=== PATIENT | male | born 2000 | race African-American/Black ===

== ENCOUNTER 2021-10-15 04:15 | Emergency (ER) | payer MEDICAID ==
[~2021-10-15] VITALS: Ht 180.3 cm; Wt 82.0 kg
[2021-10-15] MEDS ORDERED: HYDROCODONE/ACETAMINOPHEN 5/325MG TABLET PO STA (04:55)
[2021-10-15 05:19] VITALS: BP 138/76
[2021-10-15 06:12] LABS: CHLORIDE 106 mEq/L (98-107)
[2021-10-15 06:16] LABS: BASOPHILS % 0.4 % (0.0-2.0); EOSINOPHILS % 3.9 % (0.0-5.0); HEMATOCRIT. 38.4 % (42.0-52.0); HEMOGLOBIN. 12.8 g/dL (14.0-18.0); LYMPHOCYTES % 36.1 % (20.0-50.0); MEAN CORPUSCULAR HEMOGLOBIN 27.8 pg (28.0-32.0); MEAN CORPUSCULAR VOLUME 83.6 fL (80.0-94.0); MEAN PLATELET VOLUME 8.6 fl (7.4-10.4); MONOCYTES % 8.7 % (2.0-8.0); NEUTROPHILS % 50.9 % (40.0-76.0); PLATELET 285 x1000/uL (130-400); RED CELL DISTRIBUTION WIDTH 15.5 % (11.6-14.6)
[2021-10-15] MEDS ORDERED: NAPR-681 PO (06:52)
[2021-10-15 06:56] LABS: CLARITY URINE CLEAR (CLEAR); COLOR URINE YELLOW (YELLOW); KETONES URINE NEGATIVE (NEGATIVE); LEUKOCYTE ESTERASE URINE NEGATIVE (NEGATIVE); NITRITE URINE NEGATIVE (NEGATIVE); OCCULT BLOOD URINE NEGATIVE (NEGATIVE); PH URINE 6.5 (4.5-8.0); PROTEIN URINE NEGATIVE (NEGATIVE); SPECIFIC GRAVITY URINE 1.005 (1.005-1.030); UROBILINOGEN URINE 0.2 E.U./dL (0.2-1.0)
[2021-10-15] MEDS ORDERED: CYCL5TAB PO (07:00)
== END 2021-10-15 07:10 | disposition home or self-care (01) ==
LOC: ER 04:15
DX: M54.50 Low back pain, unspecified (principal); Z87.828 Personal history of other (healed) physical injury and trauma
CPT/HCPCS: 36415; 71045; 76770; 80053; 81003; 85025; 99285

== ENCOUNTER 2021-11-10 06:19 | Emergency (ER) | payer MEDICAID ==
[~2021-11-10] VITALS: Ht 180.3 cm; Wt 82.0 kg
[~2021-11-10 06:19] MED LIST: CYCL5TAB PO; NAPR-681 PO
[2021-11-10] MEDS ORDERED: AM250 PO (08:17)
[2021-11-10 08:51] VITALS: BP 139/70
== END 2021-11-10 08:52 | disposition home or self-care (01) ==
LOC: ER 06:19
DX: H66.92 Otitis media, unspecified, left ear (principal); Z79.899 Other long term (current) drug therapy
CPT/HCPCS: 99283

== ENCOUNTER 2022-11-23 17:40 | Emergency (ER) | payer MEDICAID ==
[~2022-11-23] VITALS: Ht 180.3 cm; Wt 82.0 kg
[~2022-11-23 17:40] MED LIST changes: +AM250 PO
[2022-11-23 17:41] VITALS: BP 114/66
[2022-11-23 18:43] LABS: BASOPHILS % 0.2 % (0.0-2.0); EOSINOPHILS % 0.5 % (0.0-5.0); HEMATOCRIT. 42.6 % (42.0-52.0); HEMOGLOBIN. 14.5 g/dL (14.0-18.0); LYMPHOCYTES % 15.2 % (20.0-50.0); MEAN CORPUSCULAR HEMOGLOBIN 29.1 pg (28.0-32.0); MEAN CORPUSCULAR VOLUME 85.8 fL (80.0-94.0); MEAN PLATELET VOLUME 8.1 fl (7.4-10.4); MONOCYTES % 7.6 % (2.0-8.0); NEUTROPHILS % 76.5 % (40.0-76.0); PLATELET 294 x1000/uL (130-400); RED BLOOD CELL COUNT 4.97 mill/uL (4.7-6.1); RED CELL DISTRIBUTION WIDTH 14.1 % (11.6-14.6)
[2022-11-23] MEDS: IBUPROFEN 600MG TABLET PO STA (18:45)
[2022-11-23] MEDS: ONDANSETRON 4MG ODT PO STA (18:45)
[2022-11-23 19:00] LABS: CLARITY URINE CLEAR (CLEAR); COLOR URINE YELLOW (YELLOW); KETONES URINE 1+ (NEGATIVE); LEUKOCYTE ESTERASE URINE TRACE (NEGATIVE); NITRITE URINE NEGATIVE (NEGATIVE); OCCULT BLOOD URINE NEGATIVE (NEGATIVE); PROTEIN URINE NEGATIVE (NEGATIVE); SPECIFIC GRAVITY URINE 1.009 (1.005-1.030)
[2022-11-23 19:04] LABS: CHLORIDE 103 mEq/L (98-107)
[2022-11-23] MEDS: FAMOTIDINE 20MG TABLET PO ONE (20:03)
[2022-11-23] MEDS: MAGNESIUM/ALUMINUM HYDROXIDE/SIMETHICONE 30ML UDC PO ONE (20:03)
[2022-11-23] MEDS ORDERED: TAMS-11 MT (20:46)
[2022-11-23] MEDS ORDERED: CIPR500T5 MT (20:46)
== END 2022-11-23 21:42 | disposition home or self-care (01) ==
LOC: ER 17:46
DX: N20.0 Calculus of kidney (principal); Z98.890 Other specified postprocedural states
CPT/HCPCS: 36415; 74176; 80053; 81003; 83690; 85025; 99284; Q0162

== ENCOUNTER 2023-01-22 15:26 | Emergency (ER) | payer MEDICAID ==
[~2023-01-22] VITALS: Ht 180.3 cm; Wt 80.0 kg
[~2023-01-22 15:26] MED LIST changes: +CIPR500T5 MT; +TAMS-11 MT
[2023-01-22] MEDS ORDERED: ACETAMINOPHEN 325MG TABLET PO STA (15:31)
[2023-01-22 15:33] VITALS: BP 116/65
[2023-01-22 17:06] LABS: BASOPHILS % 0.1 % (0.0-2.0); EOSINOPHILS % 0.8 % (0.0-5.0); HEMATOCRIT. 39.2 % (42.0-52.0); HEMOGLOBIN. 13.2 g/dL (14.0-18.0); MEAN CORPUSCULAR HEMOGLOBIN 28.9 pg (28.0-32.0); MEAN CORPUSCULAR VOLUME 85.5 fL (80.0-94.0); MEAN PLATELET VOLUME 8.9 fl (7.4-10.4); MONOCYTES % 8.3 % (2.0-8.0); NEUTROPHILS % 75.8 % (40.0-76.0); PLATELET 256 x1000/uL (130-400); RED BLOOD CELL COUNT 4.58 mill/uL (4.7-6.1); RED CELL DISTRIBUTION WIDTH 14.3 % (11.6-14.6)
[2023-01-22 17:15] LABS: CHLORIDE 100 mEq/L (98-107)
[2023-01-22 19:46] LABS: CLARITY URINE CLEAR (CLEAR); COLOR URINE ORANGE (YELLOW); KETONES URINE 4+ (NEGATIVE); LEUKOCYTE ESTERASE URINE TRACE (NEGATIVE); NITRITE URINE NEGATIVE (NEGATIVE); OCCULT BLOOD URINE TRACE (NEGATIVE); PROTEIN URINE 1+ (NEGATIVE); SPECIFIC GRAVITY URINE 1.027 (1.005-1.030)
[2023-01-22] MEDS ORDERED: IBUP-2029 MT (20:13)
== END 2023-01-22 22:09 | disposition home or self-care (01) ==
LOC: ER 15:26
DX: R10.9 Unspecified abdominal pain (principal)
CPT/HCPCS: 36415; 74176; 80053; 81003; 85025; 99284

== ENCOUNTER 2023-02-20 11:17 | Emergency (ER) | payer MEDICAID ==
[~2023-02-20] VITALS: Ht 180.3 cm; Wt 82.0 kg
[~2023-02-20 11:17] MED LIST changes: +IBUP-2029 MT
[2023-02-20] MEDS ORDERED: PENI500T MT (12:40)
[2023-02-20] MEDS ORDERED: IBUP-2029 MT (12:40)
[2023-02-20] MEDS ORDERED: IBUPROFEN 600MG TABLET PO ONE (12:45)
[2023-02-20] MEDS ORDERED: PENICILLIN V POTASSIUM 250MG TABLET PO ONE (12:45)
[2023-02-20 13:08] VITALS: BP 143/66
== END 2023-02-20 13:09 | disposition home or self-care (01) ==
LOC: ER 11:19
DX: K04.7 Periapical abscess without sinus (principal); Z87.19 Personal history of other diseases of the digestive system
CPT/HCPCS: 99283

== ENCOUNTER 2023-02-25 00:30 | Emergency (ER) | payer MEDICAID ==
[~2023-02-25] VITALS: Ht 182.9 cm; Wt 87.0 kg
[~2023-02-25 00:30] MED LIST changes: +PENI500T MT
[2023-02-25 00:40] VITALS: BP 110/60
[2023-02-25] MEDS ORDERED: IBUPROFEN 600MG TABLET PO ONE (01:15)
[2023-02-25 01:44] LABS: CLARITY URINE CLEAR (CLEAR); COLOR URINE YELLOW (YELLOW); KETONES URINE TRACE (NEGATIVE); LEUKOCYTE ESTERASE URINE TRACE (NEGATIVE); NITRITE URINE NEGATIVE (NEGATIVE); OCCULT BLOOD URINE NEGATIVE (NEGATIVE); PH URINE 7.5 (4.5-8.0); PROTEIN URINE NEGATIVE (NEGATIVE); SPECIFIC GRAVITY URINE 1.022 (1.005-1.030)
[2023-02-25] MEDS ORDERED: SULF1TAB48 MT (02:12)
[2023-02-25] MEDS ORDERED: IBUP-2029 MT (02:12)
== END 2023-02-25 03:03 | disposition home or self-care (01) ==
LOC: ER 00:38
DX: N39.0 Urinary tract infection, site not specified (principal)
CPT/HCPCS: 81003; 99283

== ENCOUNTER 2023-03-31 07:31 | Emergency (ER) | payer MEDICAID ==
[~2023-03-31] VITALS: Ht 180.3 cm; Wt 82.0 kg
[~2023-03-31 07:31] MED LIST changes: +SULF1TAB48 MT
[2023-03-31] MEDS ORDERED: MAGNESIUM/ALUMINUM HYDROXIDE/SIMETHICONE 30ML UDC PO STA (07:37)
[2023-03-31] MEDS ORDERED: FAMOTIDINE 20MG/2ML VIAL IV STA (07:37)
[2023-03-31] MEDS ORDERED: ONDANSETRON HCL 4MG/2ML INJ IV STA (07:37)
[2023-03-31] MEDS ORDERED: VISCOUS LIDOCAINE 2% 15 ML UDC PO STA (07:37)
[2023-03-31] MEDS ORDERED: DICYCLOMINE 10 MG/5 ML ORAL SYR PO STA (07:37)
[2023-03-31 07:38] VITALS: BP 108/74
[2023-03-31 07:53] LABS: BASOPHILS % 0.5 % (0.0-2.0); EOSINOPHILS % 3.1 % (0.0-5.0); HEMATOCRIT. 37.1 % (42.0-52.0); HEMOGLOBIN. 12.3 g/dL (14.0-18.0); MEAN CORPUSCULAR HEMOGLOBIN 28.1 pg (28.0-32.0); MEAN PLATELET VOLUME 7.3 fl (7.4-10.4); NEUTROPHILS % 58.4 % (40.0-76.0); PLATELET 346 x1000/uL (130-400); RED BLOOD CELL COUNT 4.36 mill/uL (4.7-6.1); RED CELL DISTRIBUTION WIDTH 15.3 % (11.6-14.6)
[2023-03-31 08:01] LABS: CHLORIDE 108 mEq/L (98-107)
[2023-03-31 08:05] LABS: INR 1.1; PROTHROMBIN TIME 11.5 sec (9.6-11.0)
[2023-03-31] MEDS ORDERED: ONDANSETRON HCL 4MG/2ML INJ IV NR (08:15)
[2023-03-31] MEDS ORDERED: VISCOUS LIDOCAINE 2% 15 ML UDC PO NR (08:15)
[2023-03-31] MEDS ORDERED: FAMOTIDINE 20MG/2ML VIAL IV NR (08:15)
[2023-03-31] MEDS ORDERED: MAGNESIUM/ALUMINUM HYDROXIDE/SIMETHICONE 30ML UDC PO NR (08:15)
== END 2023-03-31 09:46 | disposition home or self-care (01) ==
LOC: ER 07:31
DX: R10.9 Unspecified abdominal pain (principal); K25.9 Gastric ulcer, unspecified as acute or chronic, without hemorrhage or perforation; Z79.899 Other long term (current) drug therapy
CPT/HCPCS: 36415; 80053; 83690; 85025; 85610; 96374; 96375; 99284; J2405; J3490; Z7610

== ENCOUNTER 2023-05-22 21:55 | Inpatient (IN) | payer MEDICAID ==
[~2023-05-22] VITALS: Ht 180.3 cm; Wt 87.1 kg
[2023-05-22 22:50] LABS: BASOPHILS % 0.5 % (0.0-2.0); EOSINOPHILS % 1.6 % (0.0-5.0); LYMPHOCYTES % 23.3 % (20.0-50.0); MEAN CORPUSCULAR HEMOGLOBIN 28.3 pg (28.0-32.0); MEAN CORPUSCULAR VOLUME 84.6 fL (80.0-94.0); MEAN PLATELET VOLUME 8.7 fl (7.4-10.4); MONOCYTES % 6.4 % (2.0-8.0); NEUTROPHILS % 68.2 % (40.0-76.0); PLATELET 223 x1000/uL (130-400); RED BLOOD CELL COUNT 4.26 mill/uL (4.7-6.1)
[2023-05-22 22:54] LABS: CHLORIDE 104 mEq/L (98-107)
[2023-05-22] MEDS ORDERED: KETOROLAC 30MG/ML VIAL IV STA (23:07)
[2023-05-22] MEDS ORDERED: SODIUM CHLORIDE 0.9% 1,000 ML IV ONE (23:15)
[2023-05-22 23:49] LABS: CLARITY URINE CLEAR (CLEAR); COLOR URINE YELLOW (YELLOW); KETONES URINE NEGATIVE (NEGATIVE); LEUKOCYTE ESTERASE URINE NEGATIVE (NEGATIVE); NITRITE URINE NEGATIVE (NEGATIVE); OCCULT BLOOD URINE NEGATIVE (NEGATIVE); PH URINE 6.5 (4.5-8.0); PROTEIN URINE NEGATIVE (NEGATIVE); SPECIFIC GRAVITY URINE 1.019 (1.005-1.030); UROBILINOGEN URINE 0.2 E.U./dL (0.2-1.0)
[2023-05-23] MEDS ORDERED: IOHEXOL-350 100 ML BOTTLE ONE (01:07)
[2023-05-23] MEDS ORDERED: PIPERACILLIN/TAZ 3.375G PREMIX 50 ML IV ONE ×2 (02:00→16:00)
[2023-05-23] MEDS ORDERED: SODIUM CHLORIDE 0.9% 1000ML BAG (SEPSIS BOLUS) IV ONE (02:00)
[2023-05-23] MEDS ORDERED: VANCOMYCIN 1G PREMIX 200 ML IV ONE (02:00)
[2023-05-23 02:42] LABS: INR 1.1; PARTIAL THROMBOPLASTIN TIME 30.9 sec (23.4-31.0); PROTHROMBIN TIME 11.5 sec (9.6-11.0)
[2023-05-23] MEDS ORDERED: ONDANSETRON HCL 4MG/2ML INJ IV PRN (02:45)
[2023-05-23] MEDS: SODIUM CHLORIDE 0.9% 1,000 ML IV SCH ×2 (02:45→22:45)
[2023-05-23] MEDS ORDERED: ACETAMINOPHEN 325MG TABLET PO PRN ×2 (02:45)
[2023-05-23] MEDS ORDERED: DIPHENHYDRAMINE 50MG/ML VIAL IV PRN (02:45)
[2023-05-23] MEDS ORDERED: PANTOPRAZOLE SODIUM 40 MG/VIAL IV SCH ×2 (03:15→09:00)
[2023-05-23 03:50] LABS: BASOPHILS % 0.3 % (0.0-2.0); EOSINOPHILS % 2.5 % (0.0-5.0); HEMATOCRIT. 32.9 % (42.0-52.0); HEMOGLOBIN. 11.1 g/dL (14.0-18.0); LYMPHOCYTES % 27.2 % (20.0-50.0); MEAN CORPUSCULAR HEMOGLOBIN 28.5 pg (28.0-32.0); MEAN CORPUSCULAR VOLUME 84.8 fL (80.0-94.0); MEAN PLATELET VOLUME 8.7 fl (7.4-10.4); MONOCYTES % 6.7 % (2.0-8.0); NEUTROPHILS % 63.3 % (40.0-76.0); PLATELET 206 x1000/uL (130-400); RED BLOOD CELL COUNT 3.88 mill/uL (4.7-6.1); RED CELL DISTRIBUTION WIDTH 16.3 % (11.6-14.6)
[2023-05-23 03:56] LABS: CHLORIDE 107 mEq/L (98-107)
[2023-05-23] MEDS: PANTOPRAZOLE SODIUM 40 MG/VIAL IV SCH ×2 (11:21→20:44)
[2023-05-23 14:45] VITALS: BP 124/63; PULSE 68; RESP 20; TEMP 97.2
[2023-05-23 16:00] VITALS: BP 120/60; PULSE 64; RESP 16; TEMP 99.3
[2023-05-23] MEDS: PIPERACILLIN/TAZOBACTAM 3.375G in DEXT 5% WATER 50ML IV SCH ×2 (16:46→22:42)
[2023-05-23] MEDS: HYDROMORPHONE HCL/PF 2MG/ML CPJ IV PRN (18:35)
[2023-05-23 20:00] VITALS: BP 117/68; PULSE 77; RESP 20; TEMP 97.5
[2023-05-24] VITALS: BP 109/59; PULSE 66; RESP 20; TEMP 98.2
[2023-05-24 04:00] VITALS: BP 102/57; PULSE 68; RESP 20; TEMP 98.2
[2023-05-24] MEDS: HYDROMORPHONE HCL/PF 2MG/ML CPJ IV PRN (04:34)
[2023-05-24] MEDS: PIPERACILLIN/TAZOBACTAM 3.375G in DEXT 5% WATER 50ML IV SCH ×3 (06:07→22:22)
[2023-05-24 06:30] LABS: INR 1.2; PROTHROMBIN TIME 12.8 sec (9.6-11.0)
[2023-05-24 06:32] LABS: BASOPHILS % 0.4 % (0.0-2.0); EOSINOPHILS % 2.3 % (0.0-5.0); HEMOGLOBIN. 12.5 g/dL (14.0-18.0); LYMPHOCYTES % 24.4 % (20.0-50.0); MEAN CORPUSCULAR HEMOGLOBIN 28.5 pg (28.0-32.0); MEAN CORPUSCULAR VOLUME 84.6 fL (80.0-94.0); MEAN PLATELET VOLUME 9.2 fl (7.4-10.4); MONOCYTES % 8.4 % (2.0-8.0); NEUTROPHILS % 64.5 % (40.0-76.0); PLATELET 223 x1000/uL (130-400); RED BLOOD CELL COUNT 4.37 mill/uL (4.7-6.1); RED CELL DISTRIBUTION WIDTH 16.3 % (11.6-14.6)
[2023-05-24 07:28] LABS: CHLORIDE 106 mEq/L (98-107)
[2023-05-24] MEDS: PANTOPRAZOLE SODIUM 40 MG/VIAL IV SCH ×2 (08:34→22:22)
[2023-05-24] MEDS: SODIUM CHLORIDE 0.9% 1,000 ML IV SCH ×3 (08:45→22:23)
[2023-05-24] MEDS ORDERED: DIATR MEGLU/DIATRIZOATE SOLN 30ML PO NR (11:45)
[2023-05-24] MEDS ORDERED: DIATR MEGLU/DIATRIZOATE SOLN 120ML ONE (15:38)
[2023-05-24] MEDS: KETOROLAC 30MG/ML VIAL IV PRN (18:21)
[2023-05-24 20:00] VITALS: BP 101/56; PULSE 63; RESP 20; TEMP 97.5
[2023-05-24] MEDS ORDERED: NALOXONE HCL 0.4MG/ML VIAL IV PRN (20:00)
[2023-05-25] VITALS (21 sets, daily range): BP systolic 104–138; BP diastolic 51–77; PULSE 51–68; RESP 16–20; TEMP 97.2–100.1
[2023-05-25] MEDS: HYDROMORPHONE HCL/PF 2MG/ML CPJ IV PRN ×2 (00:57→21:51)
[2023-05-25] MEDS: PIPERACILLIN/TAZOBACTAM 3.375G in DEXT 5% WATER 50ML IV SCH ×3 (05:54→21:51)
[2023-05-25] MEDS: SODIUM CHLORIDE 0.9% 1,000 ML IV SCH (05:54)
[2023-05-25 06:33] LABS: BASOPHILS % 0.4 % (0.0-2.0); EOSINOPHILS % 4.2 % (0.0-5.0); HEMATOCRIT. 33.7 % (42.0-52.0); HEMOGLOBIN. 11.3 g/dL (14.0-18.0); LYMPHOCYTES % 36.9 % (20.0-50.0); MEAN CORPUSCULAR HEMOGLOBIN 28.4 pg (28.0-32.0); MEAN CORPUSCULAR VOLUME 84.4 fL (80.0-94.0); MEAN PLATELET VOLUME 9.2 fl (7.4-10.4); MONOCYTES % 10.1 % (2.0-8.0); NEUTROPHILS % 48.4 % (40.0-76.0); PLATELET 225 x1000/uL (130-400); RED BLOOD CELL COUNT 3.99 mill/uL (4.7-6.1)
[2023-05-25 08:19] LABS: CHLORIDE 109 mEq/L (98-107)
[2023-05-25] MEDS: PANTOPRAZOLE SODIUM 40 MG/VIAL IV SCH (08:44)
[2023-05-25] MEDS: KETOROLAC 30MG/ML VIAL IV PRN ×3 (08:47→18:19)
[2023-05-25] MEDS ORDERED: LIDOCAINE HCL 1% 10 MG/ML 10ML VIAL ONE (09:22)
[2023-05-25] MEDS ORDERED: SODIUM BICARBONATE 4% (2.4MEQ) 5ML VIAL IV ONE (09:22)
[2023-05-25 12:39] LABS: INR 1.1; PROTHROMBIN TIME 12.1 sec (9.6-11.0)
[2023-05-25] MEDS ORDERED: FENTANYL CITRATE/PF 50MCG/ML 2ML VIAL ONE (13:00)
[2023-05-25] MEDS ORDERED: FENTANYL CITRATE/PF 50MCG/ML 2ML VIAL IV ONE (14:15)
[2023-05-26] VITALS: BP 111/54; PULSE 57; RESP 20; TEMP 97.7
[2023-05-26] MEDS: SODIUM CHLORIDE 0.9% 1,000 ML IV SCH ×3 (00:16→18:38)
[2023-05-26] MEDS: PANTOPRAZOLE 40MG DR TABLET PO SCH ×3 (00:20→20:48)
[2023-05-26] MEDS: HYDROMORPHONE HCL/PF 2MG/ML CPJ IV PRN ×3 (01:52→20:49)
[2023-05-26 04:00] VITALS: BP 109/59; PULSE 53; RESP 20; TEMP 97.5
[2023-05-26] MEDS: PIPERACILLIN/TAZOBACTAM 3.375G in DEXT 5% WATER 50ML IV SCH ×3 (05:36→20:49)
[2023-05-26 07:15] LABS: BASOPHILS % 0.5 % (0.0-2.0); EOSINOPHILS % 5.1 % (0.0-5.0); HEMATOCRIT. 33.5 % (42.0-52.0); HEMOGLOBIN. 11.3 g/dL (14.0-18.0); MEAN CORPUSCULAR HEMOGLOBIN 28.7 pg (28.0-32.0); MEAN CORPUSCULAR VOLUME 85.1 fL (80.0-94.0); MEAN PLATELET VOLUME 8.9 fl (7.4-10.4); MONOCYTES % 9.5 % (2.0-8.0); NEUTROPHILS % 49.9 % (40.0-76.0); PLATELET 231 x1000/uL (130-400); RED BLOOD CELL COUNT 3.94 mill/uL (4.7-6.1)
[2023-05-26 07:32] LABS: CHLORIDE 106 mEq/L (98-107)
[2023-05-26 20:00] VITALS: BP 109/52; PULSE 52; RESP 18; TEMP 99
[2023-05-27] VITALS (7 sets, daily range): BP systolic 104–109; BP diastolic 52–68; PULSE 50–71; RESP 16–19; TEMP 96.1–99.1; O2SAT 99
[2023-05-27] MEDS: HYDROCODONE/ACETAMINOPHEN 7.5/325MG TABLET PO PRN ×2 (03:07→19:13)
[2023-05-27] MEDS: PIPERACILLIN/TAZOBACTAM 3.375G in DEXT 5% WATER 50ML IV SCH ×2 (05:15→13:32)
[2023-05-27] MEDS: SODIUM CHLORIDE 0.9% 1,000 ML IV SCH ×2 (06:44→16:21)
[2023-05-27] MEDS: PANTOPRAZOLE 40MG DR TABLET PO SCH (08:47)
[2023-05-27] MEDS: HYDROMORPHONE HCL/PF 2MG/ML CPJ IV PRN (13:17)
== END 2023-05-27 20:35 | disposition home health service (06) | DRG 254 ==
LOC: ER 22:35 → 6EST 05-23 02:36 → EDBEDREQSVC 05-23 03:49 → 6EST 05-23 14:36
PROVIDERS: ADMIT Internal Medicine; ATTEND Internal Medicine
PROC: 0J9C3ZZ Drainage of Pelvic Region Subcutaneous Tissue and Fascia, Percutaneous Approach (ICD-10-PCS; principal; 2023-05-25)
DX: K63.2 Fistula of intestine (principal); K65.1 Peritoneal abscess; K27.9 Peptic ulcer, site unspecified, unspecified as acute or chronic, without hemorrhage or perforation; K76.0 Fatty (change of) liver, not elsewhere classified; F10.10 Alcohol abuse, uncomplicated; Y90.9 Presence of alcohol in blood, level not specified; N20.0 Calculus of kidney; Z87.11 Personal history of peptic ulcer disease; S31.139A Puncture wound of abdominal wall without foreign body, unspecified quadrant without penetration into peritoneal cavity, initial encounter; Z87.442 Personal history of urinary calculi; Z79.899 Other long term (current) drug therapy; W34.09XA Accidental discharge from other specified firearms, initial encounter; Y93.89 Activity, other specified; Y92.89 Other specified places as the place of occurrence of the external cause; Y99.8 Other external cause status
CPT/HCPCS: 36415; 71045; 71275; 74176; 77012; 80048; 80053; 81003; 83605; 83880; 84145; 84484; 85025; 85379; 87077; 87186; 93005; 99285; C1729; C1769; C9113; J1170; J1885; J2543; J3010; J3370; J3490; J7030; J7060; L8514; Q9963; Q9967

== ENCOUNTER 2023-06-13 18:22 | Emergency (ER) | payer MEDICAID, OTHER ==
[~2023-06-13] VITALS: Ht 182.9 cm; Wt 82.0 kg
[2023-06-13 18:34] VITALS: O2SAT 100
[2023-06-13] MEDS ORDERED: KETOROLAC 60MG/2ML VIAL IM STA (18:58)
[2023-06-13 20:19] LABS: BASOPHILS % 0.9 % (0.0-2.0); EOSINOPHILS % 2.9 % (0.0-5.0); HEMATOCRIT. 35.8 % (42.0-52.0); HEMOGLOBIN. 11.9 g/dL (14.0-18.0); LYMPHOCYTES % 49.2 % (20.0-50.0); MEAN CORPUSCULAR HEMOGLOBIN 28.1 pg (28.0-32.0); MEAN CORPUSCULAR VOLUME 84.5 fL (80.0-94.0); MONOCYTES % 5.9 % (2.0-8.0); NEUTROPHILS % 41.1 % (40.0-76.0); PLATELET 329 x1000/uL (130-400); RED BLOOD CELL COUNT 4.24 mill/uL (4.7-6.1); RED CELL DISTRIBUTION WIDTH 15.7 % (11.6-14.6)
[2023-06-13 20:25] LABS: CHLORIDE 103 mEq/L (98-107)
[2023-06-13 20:27] LABS: INR 1.1
[2023-06-14] MEDS ORDERED: KETOROLAC 60MG/2ML VIAL IM NR (04:30)
[2023-06-14 06:00] VITALS: BP 122/61; PULSE 48; RESP 16; TEMP 98.5
[2023-06-14 07:17] VITALS: RESP 25
== END 2023-06-14 06:06 | disposition home or self-care (01) ==
LOC: ER 18:22
DX: R53.1 Weakness (principal); Z87.19 Personal history of other diseases of the digestive system; Z79.899 Other long term (current) drug therapy
CPT/HCPCS: 80053; 83690; 85025; 85610; 36415; 74176; 99285; 96372; J1885; Z7610 ×2

== ENCOUNTER 2023-10-26 09:02 | Emergency (ER) | payer OTHER ==
[~2023-10-26] VITALS: Ht 177.8 cm; Wt 75.0 kg
[~2023-10-26 09:02] MED LIST changes: -AM250 PO; -CIPR500T5 MT; +LEVO-65 MT; +METR-167 MT; -NAPR-681 PO; -PENI500T MT; -SULF1TAB48 MT
[2023-10-26 09:04] VITALS: BP 120/86; O2SAT 99
[2023-10-26] MEDS ORDERED: ACETAMINOPHEN 325MG TABLET PO ONE (09:45)
[2023-10-26] MEDS ORDERED: GUAI-948 MT (11:39)
[2023-10-26 12:18] VITALS: PULSE 78; RESP 18; TEMP 98.8
== END 2023-10-26 12:20 | disposition home or self-care (01) ==
LOC: ER 09:02
DX: B34.9 Viral infection, unspecified (principal)
CPT/HCPCS: 87804; 99283

== ENCOUNTER 2024-05-05 00:08 | Emergency (ER) | payer MEDICAID, OTHER ==
[~2024-05-05] VITALS: Ht 182.9 cm; Wt 90.0 kg
[~2024-05-05 00:08] MED LIST changes: +GUAI-948 MT
[2024-05-05 00:10] VITALS: O2SAT 99
[2024-05-05 00:45] VITALS: BP 134/88; PULSE 92; RESP 18
[2024-05-05] MEDS: BACITRACIN ZINC OINT UDPKT TOP ONE (00:45)
[2024-05-05] MEDS: IBUPROFEN 400MG TABLET PO ONE (00:45)
[2024-05-05] MEDS ORDERED: TETANUS, DIPHTHERIA, PERTUSSIS VAC/PF 0.5ML (>10YR OLD) IM ONE (00:45)
[2024-05-05] MEDS: ACETAMINOPHEN 325MG TABLET PO ONE (00:45)
[2024-05-05] MEDS: LIDOCAINE HCL/PF 1% 10 MG/ML 5ML VIAL INFIL ONE (00:45)
[2024-05-05] MEDS ORDERED: NAPR375T5 MT (02:40)
[2024-05-05] MEDS ORDERED: BO1 TP (02:40)
[2024-05-05] MEDS ORDERED: NAPR500T7 MT (15:20)
[2024-05-15] MEDS ORDERED: OMEP20CA14 PO (11:44)
== END 2024-05-05 04:48 | disposition home or self-care (01) ==
LOC: ER 00:08
DX: S41.111A Laceration without foreign body of right upper arm, initial encounter (principal); S31.139A Puncture wound of abdominal wall without foreign body, unspecified quadrant without penetration into peritoneal cavity, initial encounter; X95.9XXA Assault by unspecified firearm discharge, initial encounter; Y93.89 Activity, other specified; Y92.89 Other specified places as the place of occurrence of the external cause; Y99.8 Other external cause status
CPT/HCPCS: 12004; 99283; J3490; Z7610

== ENCOUNTER 2024-05-05 13:34 | Emergency (ER) | payer MEDICAID, OTHER ==
[~2024-05-05] VITALS: Ht 180.3 cm; Wt 89.8 kg
[~2024-05-05 13:34] MED LIST changes: +BO1 TP; +NAPR375T5 MT
[2024-05-05 14:04] VITALS: O2SAT 100
[2024-05-05 15:15] VITALS: BP 124/72; PULSE 68; RESP 16; TEMP 98
[2024-05-05] MEDS: KETOROLAC 30MG/ML VIAL IM STA (15:15)
[2024-05-05] MEDS: ACETAMINOPHEN 500MG TABLET PO ONE (15:15)
[2024-05-05] MEDS ORDERED: NAPR500T7 MT (15:20)
== END 2024-05-05 15:57 | disposition home or self-care (01) ==
LOC: ER 14:11
DX: S41.111D Laceration without foreign body of right upper arm, subsequent encounter (principal); Z98.890 Other specified postprocedural states; X58.XXXD Exposure to other specified factors, subsequent encounter
CPT/HCPCS: 73030; 73060; 73070; 73100; 73120; 96372; 99284; J1885; Z7610

== ENCOUNTER 2024-05-07 04:59 | Emergency (ER) | payer OTHER ==
[~2024-05-07] VITALS: Ht 188 cm; Wt 120.0 kg
[~2024-05-07 04:59] MED LIST changes: +NAPR500T7 MT
[2024-05-07 05:08] VITALS: O2SAT 98
[2024-05-07] MEDS: OXYCODONE HCL/ACETAMINOPHEN 5/325MG TABLET PO ONE (05:30)
[2024-05-07] MEDS ORDERED: T3 PO (05:58)
[2024-05-07 06:00] VITALS: BP 124/64; PULSE 64; RESP 18; TEMP 98.4
[2024-05-15] MEDS ORDERED: OMEP20CA14 PO (11:44)
== END 2024-05-07 06:05 | disposition home or self-care (01) ==
LOC: ER 04:59
DX: M79.18 Myalgia, other site (principal); M79.89 Other specified soft tissue disorders; Z98.890 Other specified postprocedural states
CPT/HCPCS: 99284

== ENCOUNTER 2024-05-12 17:08 | Emergency (ER) | payer OTHER ==
[~2024-05-12] VITALS: Ht 182.9 cm; Wt 88.0 kg
[~2024-05-12 17:08] MED LIST changes: +T3 PO
[2024-05-12 17:10] VITALS: BP 146/70; PULSE 98; RESP 16; TEMP 98.6; O2SAT 100
[2024-05-12] MEDS: LORAZEPAM 2MG/ML INJ IV ONE (19:12)
[2024-05-12] MEDS: CEFTRIAXONE 1GM/50ML 50 ML IV ONE (19:30)
[2024-05-12 19:45] LABS: BASOPHILS % 0.3 % (0.0-2.0); EOSINOPHILS % 0.2 % (0.0-5.0); HEMATOCRIT. 35.6 % (42.0-52.0); HEMOGLOBIN. 12.1 g/dL (14.0-18.0); LYMPHOCYTES % 11.5 % (20.0-50.0); MEAN CORPUSCULAR HEMOGLOBIN 30.9 pg (28.0-32.0); MEAN CORPUSCULAR HGB CONC 33.9 g/dL (31.0-37.0); MEAN CORPUSCULAR VOLUME 91.3 fL (80.0-94.0); MEAN PLATELET VOLUME 7.8 fl (7.4-10.4); MONOCYTES % 8.3 % (2.0-8.0); NEUTROPHILS % 79.7 % (40.0-76.0); PLATELET 484 x1000/uL (130-400); WHITE BLOOD COUNT 14.7 x1000/uL (4.5-11.0)
[2024-05-12 19:51] LABS: CHLORIDE 105 mEq/L (98-107); POTASSIUM 4.3 mEq/L (3.5-5.1); SODIUM 135 mEq/L (136-145)
[2024-05-12 19:52] LABS: CARBON DIOXIDE 25 mEq/L (21-32)
[2024-05-12 19:53] LABS: CALCIUM 9.2 mg/dL (8.7-10.4)
[2024-05-12] MEDS ORDERED: SULF1TAB47 MT (19:56)
[2024-05-12] MEDS ORDERED: CEPH500C2 MT (19:56)
[2024-05-12 19:57] LABS: CREATININE 0.9 mg/dL (0.6-1.3); GLUCOSE 98 mg/dL (70-105); UREA NITROGEN BLOOD 7 mg/dL (9-23)
[2024-05-12] MEDS ORDERED: IOHEXOL-300 100 ML BOTTLE ONE (23:00)
== END 2024-05-12 20:57 | disposition home or self-care (01) ==
LOC: ER 17:08
DX: T81.30XA Disruption of wound, unspecified, initial encounter (principal); Z79.899 Other long term (current) drug therapy; X58.XXXA Exposure to other specified factors, initial encounter; Y93.89 Activity, other specified; Y92.89 Other specified places as the place of occurrence of the external cause; Y99.8 Other external cause status
CPT/HCPCS: 80048; 83690; 85025; 36415; 71045; 74177; 96374; 99285; Q9967; J2060; Z7610 ×2

== ENCOUNTER 2024-05-23 12:12 | Emergency (ER) | payer OTHER ==
[~2024-05-23] VITALS: Ht 182.9 cm; Wt 95.0 kg
[~2024-05-23 12:12] MED LIST changes: +CEPH500C2 MT; +OMEP20CA14 PO; +SULF1TAB47 MT
[2024-05-23 12:29] VITALS: O2SAT 98
[2024-05-23 12:36] LABS: BASOPHILS % 0.8 % (0.0-2.0); EOSINOPHILS % 2.6 % (0.0-5.0); HEMATOCRIT. 39.1 % (42.0-52.0); LYMPHOCYTES % 25.7 % (20.0-50.0); MEAN CORPUSCULAR HEMOGLOBIN 30.3 pg (28.0-32.0); MEAN CORPUSCULAR HGB CONC 33.2 g/dL (31.0-37.0); MEAN CORPUSCULAR VOLUME 91.2 fL (80.0-94.0); MEAN PLATELET VOLUME 7.6 fl (7.4-10.4); MONOCYTES % 5.8 % (2.0-8.0); NEUTROPHILS % 65.1 % (40.0-76.0); PLATELET 496 x1000/uL (130-400); RED BLOOD CELL COUNT 4.29 mill/uL (4.7-6.1); RED CELL DISTRIBUTION WIDTH 13.9 % (11.6-14.6); WHITE BLOOD COUNT 9.9 x1000/uL (4.5-11.0)
[2024-05-23 12:41] LABS: CHLORIDE 104 mEq/L (98-107); POTASSIUM 3.9 mEq/L (3.5-5.1); SODIUM 135 mEq/L (136-145)
[2024-05-23 12:42] LABS: CALCIUM 9.6 mg/dL (8.7-10.4); CARBON DIOXIDE 26 mEq/L (21-32)
[2024-05-23 12:47] LABS: GLUCOSE 92 mg/dL (70-105); UREA NITROGEN BLOOD 7 mg/dL (9-23)
[2024-05-23] MEDS ORDERED: SULF1TAB48 MT (13:18)
[2024-05-23] MEDS ORDERED: CEPH500C2 MT (13:18)
[2024-05-23 13:38] VITALS: BP 110/63; PULSE 70; RESP 18; TEMP 98
== END 2024-05-23 13:37 | disposition home or self-care (01) ==
LOC: ER 12:12
DX: L03.113 Cellulitis of right upper limb (principal); Z48.00 Encounter for change or removal of nonsurgical wound dressing
CPT/HCPCS: 36415; 80048; 85025; 99283